=== PATIENT | female | born 1970 | race Caucasian/White ===

== ENCOUNTER 2021-09-27 15:05 | Emergency (ER) | payer OTHER ==
[~2021-09-27] VITALS: Ht 154.9 cm; Wt 71.7 kg
[2021-09-27 15:29] VITALS: BP 131/91
[2021-09-27] MEDS ORDERED: FAMOTIDINE 20 MG TAB PO ONE (16:25)
[2021-09-27] MEDS ORDERED: KETOROLAC 15 MG/ML VIAL IM ONE (16:25)
[2021-09-27 17:00] LABS: BASOPHILS % (AUTO) 0.3 % (0.0-2.0); EOSINOPHILS # (AUTO) 0.1 K/uL (0-0.4); EOSINOPHILS % (AUTO) 1.4 % (0.0-4.0); HEMATOCRIT 36.7 % (36-48); LYMPHOCYTES # (AUTO) 0.7 K/uL (2.5-16.5); LYMPHOCYTES % (AUTO) 8.8 % (20.5-51.1); MEAN CORPUSCULAR HEMOGLOBIN 27 pg (27-31); MEAN CORPUSCULAR HGB CONC 33 g/dL (33-37); MEAN CORPUSCULAR VOLUME 81.9 fL (80-94); MONOCYTES # (AUTO) 0.4 K/uL (0.8-1.0); MONOCYTES % (AUTO) 4.8 % (1.7-9.3); NEUTROPHILS # (AUTO) 6.8 K/uL (1.8-7.7); NEUTROPHILS % (AUTO) 84.7 % (42.2-75.2); PLATELET COUNT (AUTO) 225 K/uL (140-450); RED BLOOD CELL COUNT(AUTO) 4.48 MIL/uL (4.20-5.40); RED CELL DISTRIBUTION WIDTH 15.5 % (11.6-13.7)
[2021-09-27 17:24] LABS: ALBUMIN 3.4 g/dL (3.4-5.0); ANION GAP 10.7 (8-16); CARBON DIOXIDE 28.3 mmol/L (21-32); CREATININE 0.6 mg/dL (0.6-1.3); TOTAL BILIRUBIN 0.4 mg/dL (0.0-1.0)
[2021-09-27 17:25] LABS: BILIRUBIN,URINE NEGATIVE (NEGATIVE); BLOOD, URINE NEGATIVE (NEGATIVE); COLOR,URINE YELLOW (YELLOW); LEUKOCYTE ESTERASE ,URINE NEGATIVE (NEGATIVE); NITRITE, URINE NEGATIVE (NEGATIVE); UGLUCOSE NEGATIVE (NEGATIVE)
[2021-09-27 17:28] LABS: APPEARANCE,URINE CLOUDY (CLEAR)
[2021-09-27] MEDS ORDERED: BEN10 PO ×2 (18:02→18:53)
[2021-09-27] MEDS ORDERED: FAMO-90 PO ×2 (18:02→18:53)
--- NOTE | 2021-09-27 18:11 | NUR ---
PT MOVED TO CHAIR A, AWAITING RESULTS
[2021-09-27 18:49] VITALS: BP 164/95
--- NOTE | 2021-09-27 18:49 | NUR ---
Patient discharged with v/s stable. Written and verbal after care instructions ABOUT GASTRITIS given and explained. Patient alert, oriented and verbalized understanding of instructions. Ambulatory with steady gait. All questions addressed prior to discharge. ID band removed. Patient advised to follow up with PMD. Rx of BENTYL AND PEPCID given. Patient educated on indication of medication including possible reaction and side effects. Opportunity to ask questions provided and answered.
== END 2021-09-27 18:49 | disposition home or self-care (01) ==
LOC: MED 15:05
DX: K29.70 Gastritis, unspecified, without bleeding (principal); R74.01 Elevation of levels of liver transaminase levels; I10 Essential (primary) hypertension; Z90.49 Acquired absence of other specified parts of digestive tract; Z90.710 Acquired absence of both cervix and uterus; Z79.899 Other long term (current) drug therapy; Z88.5 Allergy status to narcotic agent; Z88.6 Allergy status to analgesic agent; Z98.84 Bariatric surgery status
CPT/HCPCS: 36415; 71046; 74176; 80053; 81003; 83690; 84484; 85025; 93005; 96372; 99285; J1885

== ENCOUNTER 2021-12-26 13:20 | Emergency (ER) | payer OTHER ==
[~2021-12-26] VITALS: Ht 165.1 cm; Wt 71.7 kg
[~2021-12-26 13:20] MED LIST: BEN10 PO; FAMO-90 PO
[2021-12-26 13:30] VITALS: BP 152/79
--- NOTE | 2021-12-26 13:45 | NUR ---
PT AMBULATED WITH STEADY GAIT TO OUTSIDE LOBBY
--- NOTE | 2021-12-26 15:24 | NUR ---
DR RUIZ AT PT SIDE FOR EVAL
--- NOTE | 2021-12-26 15:25 | NUR ---
51 Y/O C/O OF SORE THROAT, BODY MALAISE, AND SOB, SATTING AT 99% RA, STATED THAT WAS POSITIVE IN FRIDAY ALLERGY: ACETAMINOPHEN, NORCO PMH: DENIES
[2021-12-26] MEDS ORDERED: PRED20TA5 PO (15:39)
[2021-12-26] MEDS ORDERED: IBUP-2213 PO (15:39)
--- NOTE | 2021-12-26 15:50 | NUR ---
Patient discharged with v/s stable. Written and verbal after care instructions given and explained. Patient alert, oriented and verbalized understanding of instructions. Ambulatory with steady gait. All questions addressed prior to discharge. ID band removed. Patient advised to follow up with PMD. Rx of IBUTROFEN, PREDNISONE given. Patient educated on indication of medication including possible reaction and side effects. Opportunity to ask questions provided and answered.
== END 2021-12-26 15:50 | disposition home or self-care (01) ==
LOC: MED 13:20
DX: J02.9 Acute pharyngitis, unspecified (principal); Z20.822 Contact with and (suspected) exposure to COVID-19; R05.9 Cough, unspecified; I10 Essential (primary) hypertension; Z79.899 Other long term (current) drug therapy; Z88.6 Allergy status to analgesic agent; Z88.5 Allergy status to narcotic agent
CPT/HCPCS: 99283

== ENCOUNTER 2022-01-12 13:00 | Emergency (ER) | payer OTHER ==
[~2022-01-12] VITALS: Ht 157.5 cm; Wt 69.6 kg
[~2022-01-12 13:00] MED LIST changes: +IBUP-2213 PO; +PRED20TA5 PO
[2022-01-12 13:33] VITALS: BP 155/88
[2022-01-12] MEDS ORDERED: AMOX500C25 PO (14:02)
[2022-01-12] MEDS ORDERED: IBUP-2213 PO (14:03)
[2022-01-12] MEDS ORDERED: PROM118S5 PO (14:03)
[2022-01-12] MEDS ORDERED: BENZ-300 PO (14:03)
--- NOTE | 2022-01-12 14:10 | NUR ---
SWABS HANDED TO IDALIA
[2022-01-12 14:17] VITALS: BP 155/88
--- NOTE | 2022-01-12 14:18 | NUR ---
Patient discharged with v/s stable. Written and verbal after care instructions given and explained. Patient alert, oriented and verbalized understanding of instructions. Ambulatory with steady gait. All questions addressed prior to discharge. ID band removed. Patient advised to follow up with PMD. Rx of AMOXICILLIN, IBUPROFEN, PROMETHAZINE-DM, AND CEPACOL SORE THROAT LOZENGE given. Patient educated on indication of medication including possible reaction and side effects. Opportunity to ask questions provided and answered.
== END 2022-01-12 14:18 | disposition home or self-care (01) ==
LOC: MED 13:00
DX: B34.9 Viral infection, unspecified (principal); Z20.822 Contact with and (suspected) exposure to COVID-19; I10 Essential (primary) hypertension; Z79.1 Long term (current) use of non-steroidal anti-inflammatories (NSAID); Z79.891 Long term (current) use of opiate analgesic; Z72.89 Other problems related to lifestyle
CPT/HCPCS: 99283

== ENCOUNTER 2023-06-25 20:13 | Emergency (ER) | payer SELFPAY ==
[~2023-06-25] VITALS: Ht 157.5 cm; Wt 74.4 kg
[~2023-06-25 20:13] MED LIST changes: +AMOX500C25 PO; +BENZ-300 PO; +PROM118S5 PO
[2023-06-25 20:45] VITALS: BP 156/92; PULSE 88; RESP 17; TEMP 97.7; O2SAT 99
[2023-06-25] MEDS ORDERED: KETOROLAC 30 MG/ML VIAL IM ONE (21:05)
[2023-06-25 21:20] LABS: BASOPHILS # (AUTO) 0.1 K/uL (0.00-0.22); BASOPHILS % (AUTO) 0.7 % (0.0-2.0); EOSINOPHILS # (AUTO) 0.3 K/uL (0-0.4); EOSINOPHILS % (AUTO) 3.3 % (0.0-4.0); HEMOGLOBIN 11.9 g/dL (12.0-16.0); LYMPHOCYTES # (AUTO) 2.4 K/uL (2.5-16.5); LYMPHOCYTES % (AUTO) 27.6 % (20.5-51.1); MEAN CORPUSCULAR HEMOGLOBIN 26 pg (27-31); MEAN CORPUSCULAR HGB CONC 33 g/dL (33-37); MEAN CORPUSCULAR VOLUME 79.5 fL (80-94); MONOCYTES # (AUTO) 0.8 K/uL (0.8-1.0); MONOCYTES % (AUTO) 9.5 % (1.7-9.3); NEUTROPHILS # (AUTO) 5.1 K/uL (1.8-7.7); NEUTROPHILS % (AUTO) 58.9 % (42.2-75.2); PLATELET COUNT (AUTO) 288 K/uL (140-450); RED BLOOD CELL COUNT(AUTO) 4.53 MIL/uL (4.20-5.40); RED CELL DISTRIBUTION WIDTH 14.1 % (11.6-13.7); WHITE BLOOD COUNT (AUTO) 8.7 K/uL (4.8-10.8)
[2023-06-25 21:30] LABS: ANION GAP 9.1 (8-16); CALCIUM 8.8 mg/dL (8.5-10.1); CARBON DIOXIDE 32.2 mmol/L (21-32); CREATININE 0.9 mg/dL (0.6-1.3); POTASSIUM 3.3 mmol/L (3.5-5.1)
[2023-06-25 21:38] LABS: APPEARANCE,URINE SL CLOUDY (CLEAR); BILIRUBIN,URINE NEGATIVE (NEGATIVE); BLOOD, URINE 2+ (NEGATIVE); COLOR,URINE YELLOW (YELLOW); LEUKOCYTE ESTERASE ,URINE NEGATIVE (NEGATIVE); NITRITE, URINE NEGATIVE (NEGATIVE); PROTEIN,URINE 3+ (NEGATIVE); UGLUCOSE NEGATIVE (NEGATIVE); UROBILINOGEN,URINE 0.2 EU/dL (0.2 - 1)
[2023-06-25 21:54] LABS: BACTERIA,URINE FEW /HPF (None Seen); SQUAMOUS EPITHELIAL CELL,UR 4-10 (MOD) /LPF (0-3 (FEW))
[2023-06-25] MEDS ORDERED: IBUP-1842 PO (22:00)
[2023-06-25] MEDS ORDERED: DOXY-745 PO (22:00)
[2023-06-25] MEDS ORDERED: ONDA-188 PO (22:00)
[2023-06-25 22:50] VITALS: PULSE 88; RESP 17; TEMP 98; O2SAT 98
== END 2023-06-25 22:50 | disposition home or self-care (01) ==
LOC: MED 20:13
DX: N39.0 Urinary tract infection, site not specified (principal); I10 Essential (primary) hypertension; Z79.899 Other long term (current) drug therapy; Z79.1 Long term (current) use of non-steroidal anti-inflammatories (NSAID); Z79.2 Long term (current) use of antibiotics; Z88.5 Allergy status to narcotic agent; Z88.6 Allergy status to analgesic agent
CPT/HCPCS: 36415; 76856; 80048; 81001; 85025; 87086; 87491; 93976; 96372; 99285; J1885

== ENCOUNTER 2024-01-03 15:50 | Emergency (ER) | payer OTHER ==
[~2024-01-03] VITALS: Ht 157.5 cm; Wt 68.0 kg
[~2024-01-03 15:50] MED LIST changes: +DOXY-22 PO; +IBUP-1842 PO; +ONDA-188 PO
[2024-01-03 15:55] VITALS: BP 160/91; PULSE 103; RESP 16; TEMP 101.2; O2SAT 99
[2024-01-03] MEDS ORDERED: cefTRIAXone 1,000 MG VIAL ONE (16:34)
[2024-01-03 16:41] VITALS: O2SAT 99
[2024-01-03 16:49] LABS: BASOPHILS # (AUTO) 0.1 K/uL (0.00-0.22); BASOPHILS % (AUTO) 0.8 % (0.0-2.0); EOSINOPHILS # (AUTO) 0.1 K/uL (0-0.4); EOSINOPHILS % (AUTO) 0.8 % (0.0-4.0); HEMATOCRIT 32.5 % (36-48); HEMOGLOBIN 10.5 g/dL (12.0-16.0); LYMPHOCYTES # (AUTO) 1.9 K/uL (2.5-16.5); LYMPHOCYTES % (AUTO) 13.8 % (20.5-51.1); MEAN CORPUSCULAR HEMOGLOBIN 25 pg (27-31); MEAN CORPUSCULAR HGB CONC 32 g/dL (33-37); MEAN CORPUSCULAR VOLUME 77.1 fL (80-94); MONOCYTES % (AUTO) 7.3 % (1.7-9.3); NEUTROPHILS # (AUTO) 10.7 K/uL (1.8-7.7); NEUTROPHILS % (AUTO) 77.3 % (42.2-75.2); PLATELET COUNT (AUTO) 236 K/uL (140-450); RED BLOOD CELL COUNT(AUTO) 4.21 MIL/uL (4.20-5.40); RED CELL DISTRIBUTION WIDTH 14.2 % (11.6-13.7); WHITE BLOOD COUNT (AUTO) 13.8 K/uL (4.8-10.8)
[2024-01-03] MEDS: cefTRIAXone 1,000 MG in DEXT 5% MINI-BAG PLUS 50 ML IV ONE (16:49)
[2024-01-03 17:11] LABS: APPEARANCE,URINE CLEAR (CLEAR); BILIRUBIN,URINE NEGATIVE (NEGATIVE); BLOOD, URINE 2+ (NEGATIVE); COLOR,URINE YELLOW (YELLOW); LEUKOCYTE ESTERASE ,URINE TRACE (NEGATIVE); NITRITE, URINE NEGATIVE (NEGATIVE); PROTEIN,URINE TRACE (NEGATIVE); UGLUCOSE NEGATIVE (NEGATIVE); UROBILINOGEN,URINE 0.2 EU/dL (0.2 - 1)
[2024-01-03 17:12] LABS: ANION GAP 7.7 (8-16); CALCIUM 8.6 mg/dL (8.5-10.1); CARBON DIOXIDE 30.8 mmol/L (21-32); CREATININE 0.8 mg/dL (0.6-1.3); POTASSIUM 3.5 mmol/L (3.5-5.1)
[2024-01-03 17:14] LABS: INR 0.96 (0.8-1.2); PARTIAL THROMBOPLASTIN TIME 25.7 secs (22-35.6); PROTHROMBIN TIME 10.1 secs (10.8-13.4)
[2024-01-03 17:20] LABS: LACTIC ACID 1.5 mmol/L (0.4-2.0)
[2024-01-03 17:20] LABS: ALANINE AMINOTRANSFERASE 39 U/L (12-78); ALBUMIN 3.3 g/dL (3.4-5.0); ALKALINE PHOSPHATASE 130 U/L (50-136); ASPARTATE AMINOTRANSFERASE 30 U/L (15-37); BILIRUBIN,DIRECT 0.1 mg/dL (0.0-0.3); CREATINE KINASE, TOTAL 85 U/L (26-192); TOTAL BILIRUBIN 0.3 mg/dL (0.0-1.0)
[2024-01-03] MEDS: NACL 0.9% 2,000 ML IV SCH (17:25)
[2024-01-03] MEDS ORDERED: KETOROLAC 30 MG/ML VIAL ONE (17:30)
[2024-01-03] MEDS: KETOROLAC 30 MG/ML VIAL IVP ONE (17:31)
[2024-01-03] MEDS ORDERED: ONDANSETRON 4 MG/2 ML VIAL ONE (17:31)
[2024-01-03] MEDS: ONDANSETRON 4 MG/2 ML VIAL IVP ONE (17:38)
[2024-01-03 17:53] LABS: BACTERIA,URINE FEW /HPF (None Seen); MUCUS,URINE 1+ /LPF (None Seen); RBC,URINE 0-5 /HPF (0-5); SQUAMOUS EPITHELIAL CELL,UR 4-10 (MOD) /LPF (0-3 (FEW))
[2024-01-03] MEDS: MORPHINE SULFATE 4 MG/ML SYR IVP ONE (18:25)
[2024-01-03] MEDS: NACL 0.9% 1,000 ML IV ONE (18:37)
[2024-01-03] MEDS ORDERED: CIPR500T9 PO (18:44)
[2024-01-03] MEDS ORDERED: NAPR-337 PO (18:44)
== END 2024-01-03 19:35 | disposition home or self-care (01) ==
LOC: MED 15:50
DX: T67.5XXA Heat exhaustion, unspecified, initial encounter (principal); E86.0 Dehydration; N39.0 Urinary tract infection, site not specified; I10 Essential (primary) hypertension; Z79.1 Long term (current) use of non-steroidal anti-inflammatories (NSAID); Z79.2 Long term (current) use of antibiotics; Z79.899 Other long term (current) drug therapy; X58.XXXA Exposure to other specified factors, initial encounter; Y93.G3 Activity, cooking and baking; Y92.89 Other specified places as the place of occurrence of the external cause; Y99.8 Other external cause status
CPT/HCPCS: 36415; 71045; 80048; 80076; 81001; 82550; 83605; 83880; 84484; 85025; 85610; 85730; 87040; 87086; 93005; 96361; 96365; 96375; 99285; J0696; J1885; J2270; J2405; J7030; Q0092

== ENCOUNTER 2024-04-11 20:01 | Emergency (ER) | payer OTHER ==
[~2024-04-11] VITALS: Ht 162.6 cm; Wt 81.6 kg
[~2024-04-11 20:01] MED LIST changes: +CIPR500T9 PO; +NAPR-337 PO
[2024-04-11 20:12] VITALS: BP 139/83; PULSE 87; RESP 18; TEMP 97.7; O2SAT 99
[2024-04-11 20:30] VITALS: O2SAT 97
[2024-04-11 20:35] VITALS: BP 139/83; PULSE 87; RESP 18; TEMP 97.7; O2SAT 99
[2024-04-11 21:37] LABS: FLU A ANTIGEN negative (NEGATIVE); FLU B ANTIGEN negative (NEGATIVE)
[2024-04-11] MEDS ORDERED: BENZ-300 PO (21:45)
[2024-04-11] MEDS ORDERED: IBUP-2213 PO (21:45)
[2024-04-11] MEDS ORDERED: GUAI473L41 PO (21:45)
== END 2024-04-11 21:54 | disposition home or self-care (01) ==
LOC: MED 20:01
DX: J06.9 Acute upper respiratory infection, unspecified (principal); B97.89 Other viral agents as the cause of diseases classified elsewhere; Z20.822 Contact with and (suspected) exposure to COVID-19; E11.9 Type 2 diabetes mellitus without complications; I10 Essential (primary) hypertension; Z79.899 Other long term (current) drug therapy; Z88.5 Allergy status to narcotic agent; Z88.6 Allergy status to analgesic agent
CPT/HCPCS: 71045; 87426; 87804; 99284; Q0092